=== PATIENT | male | born 1945 | race Caucasian/White ===

== ENCOUNTER 2021-08-04 08:50 | Inpatient (IN) | payer BC, MEDICARE, OTHER ==
[~2021-08-04] VITALS: Ht 182.9 cm; Wt 126.0 kg
[~2021-08-04 08:50] MED LIST: AMLO-489; BENA10TA15; CLON0.1T; HYDR10TA35; [UNRECOGNIZED DRUG - CODE]
[2021-08-04 10:38] LABS: Basophils # (auto) 0 10 ^3/uL (0-0.2); Basophils % (auto) 0.3 % (0.0-2.0); Eosinophils # (auto) 0 10 ^3/uL (0-0.8); Eosinophils % (auto) 0.1 % (0.0-7.0); Hematocrit 48.4 % (41.0-53.0); Hemoglobin 16.3 g/dL (13.5-17.5); Lymphocytes # (auto) 1.6 10 ^3/uL (0.4-5.4); Lymphocytes % (auto) 19.3 % (10.0-50.0); Mean Corpuscular Hemoglobin 28.4 pg (28.0-32.0); Mean Corpuscular Hgb Conc. 33.8 g/dL (32.0-36.0); Mean Corpuscular Volume 84.1 fL (80.0-100.0); Monocytes % (auto) 12.3 % (0.0-12.0); Neutrophils # (auto) 5.6 10 ^3/uL (1.6-8.6); Nucleated Red Blood Cells % 0.2 %; Red Blood Cells 5.75 10^6/uL (4.5-5.90); Red Cell Distribution Width 14.4 % (11.8-14.3); White Blood Cell 8.3 10^3/uL (4.4-10.8)
[2021-08-04 10:55] LABS: Albumin 2.9 g/dL (3.4-5.0); Calcium 8.7 mg/dL (8.5-10.1); Potassium 4.7 mmol/L (3.5-5.1)
[2021-08-04 10:57] LABS: Lactic Acid w/Reflex 2.1 mmol/L (0.4-2.0)
[2021-08-04 11:07] LABS: Bilirubin, Total 0.6 mg/dL (0.2-1.0); Total Protein 7.8 g/dL (6.4-8.2)
[2021-08-04] MEDS ORDERED: AZITHROMYCIN 250 MG TAB PO ONE (11:30)
[2021-08-04] MEDS ORDERED: cefTRIAXone 1GM/50ML D5W 50 ML IV ONE (11:30)
[2021-08-04 11:42] LABS: BUN/Creatinine Ratio 12.5
[2021-08-04] MEDS ORDERED: NITROGLYCERIN 0.4 MG SL TAB SL PRN ×2 (14:00→19:00)
[2021-08-04] MEDS: MORPHINE SULFATE INJECTION 2 MG/ML SYRG IV PRN ×2 (14:50→17:00)
[2021-08-04] MEDS ORDERED: CARV25TA55 PO (16:14)
[2021-08-04] MEDS ORDERED: APIX5TAB PO (16:15)
[2021-08-04] MEDS ORDERED: INSU70IN3 SC (16:16)
[2021-08-04] MEDS ORDERED: ISOS1TAB28 PO (16:17)
[2021-08-04] MEDS ORDERED: CHOL200039 PO (16:18)
[2021-08-04] MEDS ORDERED: DEXTROSE (50%) 50ML SYRG IV PRN (18:30)
[2021-08-04] MEDS ORDERED: BENAZEPRIL HCL 10 MG TAB PO ONE (18:30)
[2021-08-04] MEDS ORDERED: METOPROLOL SUCCINATE XL 50 MG TAB PO ONE (18:30)
[2021-08-04] MEDS: FUROSEMIDE 20 MG/2 ML VIAL IV SCH (18:57)
[2021-08-04] MEDS ORDERED: HYDROcodone-ACET 5/325MG TAB PO PRN (19:00)
[2021-08-04] MEDS ORDERED: METOCLOPRAMIDE HCL 5MG/ml INJ 2ml VIAL IV PRN (19:00)
[2021-08-04] MEDS ORDERED: ALUM & MAG HYDROX-SIMETH LIQ(MAALOX) 30 ML PO PRN (19:00)
[2021-08-04] MEDS ORDERED: ACETAMINOPHEN 500 MG TAB PO PRN (19:00)
[2021-08-04] MEDS ORDERED: MORPHINE SULFATE INJECTION 2 MG/ML SYRG IV PRN ×2 (19:00)
[2021-08-04] MEDS ORDERED: REMDESIVIR PER PHARMACY 0 ML IV SCH (19:00)
[2021-08-04] MEDS ORDERED: DOCUSATE SOD 100 MG CAP PO PRN (19:00)
[2021-08-04] MEDS ORDERED: PANTOPRAZOLE 40 MG/10 ML VIAL INJ IV ONE (19:15)
[2021-08-04 20:12] LABS: Basophils # (auto) 0 10 ^3/uL (0-0.2); Basophils % (auto) 0.1 % (0.0-2.0); Eosinophils # (auto) 0 10 ^3/uL (0-0.8); Eosinophils % (auto) 0.1 % (0.0-7.0); Hematocrit 45.2 % (41.0-53.0); Hemoglobin 15.4 g/dL (13.5-17.5); Lymphocytes # (auto) 1.6 10 ^3/uL (0.4-5.4); Lymphocytes % (auto) 22.1 % (10.0-50.0); Mean Corpuscular Hemoglobin 28.3 pg (28.0-32.0); Mean Corpuscular Hgb Conc. 34.1 g/dL (32.0-36.0); Monocytes # (auto) 0.8 10 ^3/uL (0-1.3); Monocytes % (auto) 11.1 % (0.0-12.0); Neutrophils # (auto) 4.9 10 ^3/uL (1.6-8.6); Neutrophils % (auto) 66.6 % (37.0-80.0); Nucleated Red Blood Cells % 0.4 %; Red Blood Cells 5.45 10^6/uL (4.5-5.90); Red Cell Distribution Width 14.1 % (11.8-14.3); White Blood Cell 7.4 10^3/uL (4.4-10.8)
[2021-08-04 20:29] LABS: Albumin 2.7 g/dL (3.4-5.0); Calcium 8.4 mg/dL (8.5-10.1); Magnesium 3.2 mg/dL (1.6-2.6); Potassium 4.5 mmol/L (3.5-5.1)
[2021-08-04 20:31] LABS: Lactic Acid w/Reflex 2.3 mmol/L (0.4-2.0)
[2021-08-04 20:39] LABS: BUN/Creatinine Ratio 12.7; Bilirubin, Total 0.5 mg/dL (0.2-1.0); CRP High Sensitivity 7.04 mg/dL (< 0.3); Total Protein 7.2 g/dL (6.4-8.2)
[2021-08-04 21:08] LABS: Thyroid Stimulating Hormone 1.4 uIU/mL (0.358-3.74)
[2021-08-04] MEDS: BUDESONIDE (INHALATION) 180 MCG IH IN SCH (21:19)
[2021-08-04] MEDS: ALBUTEROL SULF HFA 90MCG INH 200DOSE IN PRN (21:19)
[2021-08-04 22:00] VITALS: BP 132/76
[2021-08-04] MEDS ORDERED: TEMAZEPAM 15 MG CAP PO PRN (22:00)
[2021-08-04] MEDS: ASCORBIC ACID 1,000 MG TAB PO SCH (23:16)
[2021-08-04] MEDS: CHOLECALCIFEROL (VITD3) 2,000 UNIT CAP/TAB PO SCH (23:21)
[2021-08-04] MEDS: DexAMETHasone SOD PHOS 10MG/1ML VIAL INJ IV SCH (23:21)
[2021-08-04] MEDS: ZINC SULFATE 220mg CAP or TAB PO SCH (23:22)
[2021-08-04] MEDS: InsuLIN REG 1unit/0.01ml Soln (100units/ml) SC SCH (23:23)
[2021-08-04] MEDS: ATORVASTATIN 20 MG TAB PO SCH (23:23)
[2021-08-04] MEDS: APIXABAN 5 MG TAB PO SCH (23:23)
[2021-08-04] MEDS: ACCU-CHEK COMFORT CURVE STRIP VI SCH (23:24)
[2021-08-05 05:07] VITALS: BP 135/81
[2021-08-05] MEDS: FUROSEMIDE 20 MG/2 ML VIAL IV SCH (05:39)
[2021-08-05] MEDS: InsuLIN REG 1unit/0.01ml Soln (100units/ml) SC SCH ×4 (05:44→20:41)
[2021-08-05] MEDS: ACCU-CHEK COMFORT CURVE STRIP VI SCH ×4 (05:46→20:42)
[2021-08-05] MEDS: ALBUTEROL SULF HFA 90MCG INH 200DOSE IN PRN ×2 (06:25→22:43)
[2021-08-05] MEDS: BUDESONIDE (INHALATION) 180 MCG IH IN SCH ×2 (06:25→22:42)
[2021-08-05 08:00] VITALS: BP 144/91
[2021-08-05 08:11] LABS: Basophils # (auto) 0 10 ^3/uL (0-0.2); Basophils % (auto) 0.2 % (0.0-2.0); Eosinophils # (auto) 0 10 ^3/uL (0-0.8); Hematocrit 42.1 % (41.0-53.0); Hemoglobin 14.8 g/dL (13.5-17.5); Lymphocytes # (auto) 0.8 10 ^3/uL (0.4-5.4); Lymphocytes % (auto) 12.3 % (10.0-50.0); Mean Corpuscular Hemoglobin 29.3 pg (28.0-32.0); Mean Corpuscular Hgb Conc. 35.3 g/dL (32.0-36.0); Mean Corpuscular Volume 83.1 fL (80.0-100.0); Monocytes # (auto) 0.4 10 ^3/uL (0-1.3); Neutrophils # (auto) 5.2 10 ^3/uL (1.6-8.6); Neutrophils % (auto) 81.5 % (37.0-80.0); Nucleated Red Blood Cells % 0.1 %; Red Blood Cells 5.06 10^6/uL (4.5-5.90); Red Cell Distribution Width 14.2 % (11.8-14.3); White Blood Cell 6.4 10^3/uL (4.4-10.8)
[2021-08-05 08:20] LABS: Albumin 2.5 g/dL (3.4-5.0); Calcium 8.1 mg/dL (8.5-10.1); Magnesium 2.3 mg/dL (1.6-2.6); Potassium 4.6 mmol/L (3.5-5.1)
[2021-08-05 08:25] LABS: INR 1.1 (0.9-1.15); Partial Thromboplastin Time 34.7 sec (23.6-33.0)
[2021-08-05 08:26] LABS: BUN/Creatinine Ratio 13.2; Bilirubin, Total 0.6 mg/dL (0.2-1.0); Phosphorus 3.9 mg/dL (2.5-4.90); Total Protein 6.8 g/dL (6.4-8.2); Uric Acid 14.2 mg/dL (3.5-7.2)
[2021-08-05] MEDS: cefTRIAXone 1GM/50ML D5W 50 ML IV SCH (09:03)
[2021-08-05] MEDS: DexAMETHasone SOD PHOS 10MG/1ML VIAL INJ IV SCH (09:03)
[2021-08-05] MEDS: ZINC SULFATE 220mg CAP or TAB PO SCH (09:04)
[2021-08-05] MEDS: ASPirin 81 mg TAB PO SCH (09:04)
[2021-08-05] MEDS: ASCORBIC ACID 1,000 MG TAB PO SCH (09:06)
[2021-08-05] MEDS: METOPROLOL SUCCINATE XL 50 MG TAB PO SCH (09:06)
[2021-08-05] MEDS: ISOSORBIDE MONONITRATE ER 60 MG TAB PO SCH (09:07)
[2021-08-05] MEDS: CHOLECALCIFEROL (VITD3) 2,000 UNIT CAP/TAB PO SCH (09:07)
[2021-08-05] MEDS ORDERED: POTASSIUM CHL 20 Meq TABLET PO SCH (10:00)
[2021-08-05] MEDS: AZITHROMYCIN 500MG/ 250ML 250 ML IV SCH (10:00)
[2021-08-05] MEDS ORDERED: PANTOPRAZOLE 40 MG/10 ML VIAL INJ IV SCH (10:00)
[2021-08-05] MEDS: APIXABAN 5 MG TAB PO SCH ×2 (10:00→20:43)
[2021-08-05] MEDS ORDERED: BENAZEPRIL HCL 10 MG TAB PO SCH (10:00)
[2021-08-05] MEDS ORDERED: ALLOPURINOL 100 MG TAB PO SCH (10:00)
[2021-08-05] MEDS ORDERED: IVERMECTIN 3 MG TAB PO SCH (10:00)
[2021-08-05] MEDS ORDERED: SODIUM CHLORIDE 0.9% 1,000 ML IV ONE (10:45)
[2021-08-05 12:00] VITALS: BP 125/87
[2021-08-05 16:00] VITALS: BP 134/93
[2021-08-05] MEDS: ATORVASTATIN 20 MG TAB PO SCH (20:42)
[2021-08-05 22:00] VITALS: BP 143/95
[2021-08-06 05:00] VITALS: BP 123/76
[2021-08-06] MEDS: ACCU-CHEK COMFORT CURVE STRIP VI SCH ×4 (05:10→23:30)
[2021-08-06] MEDS: InsuLIN REG 1unit/0.01ml Soln (100units/ml) SC SCH ×4 (05:15→23:35)
[2021-08-06 09:00] VITALS: BP 125/77
[2021-08-06] MEDS ORDERED: DEXTROSE (50%) 50ML SYRG IV PRN (09:00)
[2021-08-06] MEDS: cefTRIAXone 1GM/50ML D5W 50 ML IV SCH (09:29)
[2021-08-06] MEDS: CHOLECALCIFEROL (VITD3) 2,000 UNIT CAP/TAB PO SCH (09:34)
[2021-08-06] MEDS: DexAMETHasone SOD PHOS 10MG/1ML VIAL INJ IV SCH (09:34)
[2021-08-06] MEDS: ZINC SULFATE 220mg CAP or TAB PO SCH (09:34)
[2021-08-06] MEDS: APIXABAN 5 MG TAB PO SCH ×2 (09:34→21:47)
[2021-08-06] MEDS: ASPirin 81 mg TAB PO SCH (09:34)
[2021-08-06] MEDS: METOPROLOL SUCCINATE XL 50 MG TAB PO SCH (09:35)
[2021-08-06] MEDS: ASCORBIC ACID 1,000 MG TAB PO SCH (09:35)
[2021-08-06] MEDS: ISOSORBIDE MONONITRATE ER 60 MG TAB PO SCH (09:35)
[2021-08-06] MEDS: INSULIN LANTUS (GLARGINE) 1 /0.01ml (100units/ml) SC SCH (09:48)
[2021-08-06] MEDS: AZITHROMYCIN 500MG/ 250ML 250 ML IV SCH (11:00)
[2021-08-06 11:12] LABS: Potassium 4.7 mmol/L (3.5-5.1)
[2021-08-06 11:17] LABS: BUN/Creatinine Ratio 15.4; Calcium 7.8 mg/dL (8.5-10.1)
[2021-08-06] MEDS: SODIUM CHLORIDE 0.9% 1,000 ML IV SCH (12:30)
[2021-08-06] MEDS: guaiFENesin-CODEINE Liq 5 ML UD GT PRN (12:41)
[2021-08-06] MEDS ORDERED: SODIUM BICARBONATE 650 MG TAB PO ONE (12:45)
[2021-08-06 13:00] VITALS: BP 171/100
[2021-08-06] MEDS: hydrALAZINE HCL 20 MG/ML VL IV PRN (15:37)
[2021-08-06] MEDS: SODIUM BICARBONATE 650 MG TAB PO SCH ×2 (17:31→21:48)
[2021-08-06] MEDS: BUDESONIDE (INHALATION) 180 MCG IH IN SCH (20:00)
[2021-08-06] MEDS: ALBUTEROL SULF HFA 90MCG INH 200DOSE IN PRN (20:01)
[2021-08-06] MEDS: ATORVASTATIN 20 MG TAB PO SCH (21:48)
[2021-08-06 22:00] VITALS: BP 142/78
[2021-08-07] MEDS: SODIUM CHLORIDE 0.9% 1,000 ML IV SCH (01:50)
[2021-08-07 05:00] VITALS: BP 144/90
[2021-08-07] MEDS: ACCU-CHEK COMFORT CURVE STRIP VI SCH ×4 (05:29→23:36)
[2021-08-07] MEDS: guaiFENesin-CODEINE Liq 5 ML UD GT PRN (05:30)
[2021-08-07] MEDS: InsuLIN REG 1unit/0.01ml Soln (100units/ml) SC SCH ×4 (05:30→23:35)
[2021-08-07] MEDS: SODIUM BICARBONATE 650 MG TAB PO SCH ×4 (05:30→22:07)
[2021-08-07 06:24] LABS: BUN/Creatinine Ratio 17.4; Calcium 8.7 mg/dL (8.5-10.1); Potassium 4.9 mmol/L (3.5-5.1)
[2021-08-07] MEDS: ALBUTEROL SULF HFA 90MCG INH 200DOSE IN PRN (06:37)
[2021-08-07] MEDS: BUDESONIDE (INHALATION) 180 MCG IH IN SCH ×2 (06:37→22:20)
[2021-08-07 07:35] VITALS: BP 119/85
[2021-08-07 08:58] VITALS: BP 145/88
[2021-08-07] MEDS: cefTRIAXone 1GM/50ML D5W 50 ML IV SCH (09:45)
[2021-08-07] MEDS: DexAMETHasone SOD PHOS 10MG/1ML VIAL INJ IV SCH (09:46)
[2021-08-07] MEDS: ZINC SULFATE 220mg CAP or TAB PO SCH (09:46)
[2021-08-07] MEDS: ASCORBIC ACID 1,000 MG TAB PO SCH (09:46)
[2021-08-07] MEDS: CHOLECALCIFEROL (VITD3) 2,000 UNIT CAP/TAB PO SCH (09:47)
[2021-08-07] MEDS: ASPirin 81 mg TAB PO SCH (10:00)
[2021-08-07] MEDS: APIXABAN 5 MG TAB PO SCH (10:00)
[2021-08-07] MEDS: ISOSORBIDE MONONITRATE ER 60 MG TAB PO SCH (10:04)
[2021-08-07] MEDS: METOPROLOL SUCCINATE XL 50 MG TAB PO SCH (10:05)
[2021-08-07] MEDS: INSULIN LANTUS (GLARGINE) 1 /0.01ml (100units/ml) SC SCH (10:06)
[2021-08-07] MEDS: AZITHROMYCIN 500MG/ 250ML 250 ML IV SCH (11:16)
[2021-08-07] MEDS ORDERED: DOXYCYCLINE 100MG/250ML 250 ML IV SCH (11:45)
[2021-08-07 13:00] VITALS: BP 119/85
[2021-08-07] MEDS ORDERED: HYDROmorphone HCL 2 MG/ML VL IV PRN (16:45)
[2021-08-07 17:00] VITALS: BP 152/96
[2021-08-07] MEDS: DOXYCYCLINE 100MG/250ML 250 ML IV SCH (18:10)
[2021-08-07 22:00] VITALS: BP 143/90
[2021-08-07 22:02] LABS: BUN/Creatinine Ratio 17.8; Calcium 8.1 mg/dL (8.5-10.1)
[2021-08-08 05:00] VITALS: BP 165/107
[2021-08-08] MEDS: SODIUM BICARBONATE 650 MG TAB PO SCH ×4 (06:00→21:48)
[2021-08-08] MEDS: BUDESONIDE (INHALATION) 180 MCG IH IN SCH ×2 (06:07→22:00)
[2021-08-08] MEDS: ALBUTEROL SULF HFA 90MCG INH 200DOSE IN PRN (06:08)
[2021-08-08 07:02] LABS: Hematocrit 43.4 % (41.0-53.0); Mean Corpuscular Hemoglobin 28.4 pg (28.0-32.0); Mean Corpuscular Hgb Conc. 34.5 g/dL (32.0-36.0); Mean Corpuscular Volume 82.3 fL (80.0-100.0); Red Blood Cells 5.27 10^6/uL (4.5-5.90); Red Cell Distribution Width 14.2 % (11.8-14.3); White Blood Cell 10.6 10^3/uL (4.4-10.8)
[2021-08-08] MEDS: ACCU-CHEK COMFORT CURVE STRIP VI SCH ×4 (07:06→23:16)
[2021-08-08] MEDS: DOXYCYCLINE 100MG/250ML 250 ML IV SCH ×2 (07:06→17:55)
[2021-08-08] MEDS: InsuLIN REG 1unit/0.01ml Soln (100units/ml) SC SCH ×4 (07:07→23:18)
[2021-08-08 07:23] LABS: Basophils % (manual) 0 (0.0-2.0); Blast Cells 0; Eosinophils % (manual) 0 (0-7); Myelocytes % 0; Potassium 4.9 mmol/L (3.5-5.1); Promyelocytes % 0; Reactive Lymphocytes 0
[2021-08-08 07:30] LABS: Albumin 2.6 g/dL (3.4-5.0); BUN/Creatinine Ratio 20.9; Bilirubin, Total 0.3 mg/dL (0.2-1.0); Calcium 8.5 mg/dL (8.5-10.1); Total Protein 6.4 g/dL (6.4-8.2)
[2021-08-08 07:31] LABS: Albumin 2.6 g/dL (3.4-5.0); Bilirubin, Direct 0.2 mg/dL (0-0.2); Bilirubin, Total 0.3 mg/dL (0.2-1.0); Total Protein 6.5 g/dL (6.4-8.2)
[2021-08-08 07:40] LABS: Band Neutrophils % (manual) 3; Lymphocytes % (manual) 12 (10.0-50.0); Metamyelocytes % 2; Monocytes % (manual) 9 (0-12)
[2021-08-08 09:00] VITALS: BP 170/103
[2021-08-08] MEDS: cefTRIAXone 1GM/50ML D5W 50 ML IV SCH (09:56)
[2021-08-08] MEDS: hydrALAZINE HCL 20 MG/ML VL IV PRN (09:57)
[2021-08-08] MEDS: ZINC SULFATE 220mg CAP or TAB PO SCH (09:57)
[2021-08-08] MEDS: DexAMETHasone SOD PHOS 10MG/1ML VIAL INJ IV SCH (09:57)
[2021-08-08] MEDS: METOPROLOL SUCCINATE XL 50 MG TAB PO SCH (09:58)
[2021-08-08] MEDS: ISOSORBIDE MONONITRATE ER 60 MG TAB PO SCH (09:58)
[2021-08-08] MEDS: CHOLECALCIFEROL (VITD3) 2,000 UNIT CAP/TAB PO SCH (09:58)
[2021-08-08] MEDS: INSULIN LANTUS (GLARGINE) 1 /0.01ml (100units/ml) SC SCH (12:01)
[2021-08-08 13:00] VITALS: BP 162/101
[2021-08-08] MEDS: APIXABAN 5 MG TAB PO SCH ×2 (15:41→21:48)
[2021-08-08 17:00] VITALS: BP 156/86
[2021-08-08 17:45] VITALS: BP 146/92
[2021-08-08] MEDS ORDERED: InsuLIN REG 1unit/0.01ml Soln (100units/ml) IV ONE (17:45)
[2021-08-08 22:00] VITALS: BP 149/99
[2021-08-09 05:00] VITALS: BP 185/100
[2021-08-09] MEDS: DOXYCYCLINE 100MG/250ML 250 ML IV SCH ×2 (05:16→18:04)
[2021-08-09] MEDS: SODIUM BICARBONATE 650 MG TAB PO SCH ×4 (05:16→22:31)
[2021-08-09] MEDS: ACCU-CHEK COMFORT CURVE STRIP VI SCH ×4 (05:45→23:42)
[2021-08-09] MEDS: InsuLIN REG 1unit/0.01ml Soln (100units/ml) SC SCH ×4 (05:46→23:45)
[2021-08-09] MEDS: hydrALAZINE HCL 20 MG/ML VL IV PRN (05:52)
[2021-08-09 06:04] LABS: Calcium 8.2 mg/dL (8.5-10.1); Potassium 4.8 mmol/L (3.5-5.1)
[2021-08-09 06:06] LABS: BUN/Creatinine Ratio 24.7
[2021-08-09] MEDS: BUDESONIDE (INHALATION) 180 MCG IH IN SCH ×2 (06:13→22:00)
[2021-08-09] MEDS: ALBUTEROL SULF HFA 90MCG INH 200DOSE IN PRN ×2 (06:13→23:06)
[2021-08-09] MEDS: cefTRIAXone 1GM/50ML D5W 50 ML IV SCH (08:52)
[2021-08-09] MEDS: APIXABAN 5 MG TAB PO SCH ×2 (08:53→21:51)
[2021-08-09] MEDS: ISOSORBIDE MONONITRATE ER 60 MG TAB PO SCH (08:53)
[2021-08-09] MEDS: ZINC SULFATE 220mg CAP or TAB PO SCH (08:53)
[2021-08-09] MEDS: DexAMETHasone SOD PHOS 10MG/1ML VIAL INJ IV SCH (08:53)
[2021-08-09] MEDS: NIFEdipine ER 30 MG TAB PO SCH (08:54)
[2021-08-09] MEDS: CHOLECALCIFEROL (VITD3) 2,000 UNIT CAP/TAB PO SCH (08:54)
[2021-08-09] MEDS: METOPROLOL SUCCINATE XL 50 MG TAB PO SCH (08:54)
[2021-08-09 09:00] VITALS: BP 148/91
[2021-08-09] MEDS: INSULIN LANTUS (GLARGINE) 1 /0.01ml (100units/ml) SC SCH (11:31)
[2021-08-09 13:00] VITALS: BP 147/93
[2021-08-09 17:00] VITALS: BP 142/85
[2021-08-09 22:00] VITALS: BP 140/90
[2021-08-10 05:00] VITALS: BP 154/85
[2021-08-10] MEDS: SODIUM BICARBONATE 650 MG TAB PO SCH ×2 (05:14→11:58)
[2021-08-10] MEDS: DOXYCYCLINE 100MG/250ML 250 ML IV SCH (05:15)
[2021-08-10] MEDS: ACCU-CHEK COMFORT CURVE STRIP VI SCH ×2 (05:30→11:59)
[2021-08-10] MEDS: InsuLIN REG 1unit/0.01ml Soln (100units/ml) SC SCH ×2 (05:31→11:59)
[2021-08-10] MEDS: BUDESONIDE (INHALATION) 180 MCG IH IN SCH (06:17)
[2021-08-10] MEDS: ALBUTEROL SULF HFA 90MCG INH 200DOSE IN PRN (06:17)
[2021-08-10 06:47] LABS: BUN/Creatinine Ratio 26.7; Calcium 8.5 mg/dL (8.5-10.1); Potassium 4.8 mmol/L (3.5-5.1)
[2021-08-10 08:00] VITALS: BP 148/91
[2021-08-10 09:23] VITALS: BP 151/82
[2021-08-10] MEDS: DexAMETHasone SOD PHOS 10MG/1ML VIAL INJ IV SCH (09:56)
[2021-08-10] MEDS: ZINC SULFATE 220mg CAP or TAB PO SCH (09:56)
[2021-08-10] MEDS: cefTRIAXone 1GM/50ML D5W 50 ML IV SCH (09:56)
[2021-08-10] MEDS: APIXABAN 5 MG TAB PO SCH (09:56)
[2021-08-10] MEDS: ISOSORBIDE MONONITRATE ER 60 MG TAB PO SCH (09:57)
[2021-08-10] MEDS: METOPROLOL SUCCINATE XL 50 MG TAB PO SCH (09:57)
[2021-08-10] MEDS: NIFEdipine ER 30 MG TAB PO SCH (09:57)
[2021-08-10] MEDS: CHOLECALCIFEROL (VITD3) 2,000 UNIT CAP/TAB PO SCH (09:57)
[2021-08-10] MEDS: INSULIN LANTUS (GLARGINE) 1 /0.01ml (100units/ml) SC SCH (10:29)
[2021-08-10 13:00] VITALS: BP 137/82
[2021-08-10] MEDS ORDERED: ZINC220T6 PO (14:07)
[2021-08-10] MEDS ORDERED: DEX4T PO (14:07)
[2021-08-10] MEDS ORDERED: ALBUAER3 IN (14:07)
[2021-08-10] MEDS ORDERED: ASCO500T11 PO (14:08)
[2021-08-10 14:22] VITALS: BP 137/82
== END 2021-08-10 18:02 | disposition home or self-care (01) | DRG 177 ==
LOC: ER 08:50 → TELE 13:46 → TELE-EAST 21:56
PROVIDERS: ADMIT Hospitalist; ATTEND Internal Medicine
DX: U07.1 COVID-19 (principal); J12.82 Pneumonia due to coronavirus disease 2019; I21.A1 Myocardial infarction type 2; J96.01 Acute respiratory failure with hypoxia; I16.9 Hypertensive crisis, unspecified; N18.4 Chronic kidney disease, stage 4 (severe); K62.5 Hemorrhage of anus and rectum; J44.0 Chronic obstructive pulmonary disease with (acute) lower respiratory infection; N17.9 Acute kidney failure, unspecified; D89.839 Cytokine release syndrome, grade unspecified; E66.01 Morbid (severe) obesity due to excess calories; E78.5 Hyperlipidemia, unspecified; E88.09 Other disorders of plasma-protein metabolism, not elsewhere classified; I48.0 Paroxysmal atrial fibrillation; K21.9 Gastro-esophageal reflux disease without esophagitis; K75.81 Nonalcoholic steatohepatitis (NASH); M1A.9XX0 Chronic gout, unspecified, without tophus (tophi); G47.30 Sleep apnea, unspecified; I12.9 Hypertensive chronic kidney disease with stage 1 through stage 4 chronic kidney disease, or unspecified chronic kidney disease; E11.22 Type 2 diabetes mellitus with diabetic chronic kidney disease; M19.90 Unspecified osteoarthritis, unspecified site; Z53.29 Procedure and treatment not carried out because of patient's decision for other reasons; K64.9 Unspecified hemorrhoids; R79.89 Other specified abnormal findings of blood chemistry; T38.0X5A Adverse effect of glucocorticoids and synthetic analogues, initial encounter; E11.40 Type 2 diabetes mellitus with diabetic neuropathy, unspecified; F17.210 Nicotine dependence, cigarettes, uncomplicated; N40.0 Benign prostatic hyperplasia without lower urinary tract symptoms; Z85.46 Personal history of malignant neoplasm of prostate; Z79.01 Long term (current) use of anticoagulants; Z68.37 Body mass index [BMI] 37.0-37.9, adult; Y92.89 Other specified places as the place of occurrence of the external cause
CPT/HCPCS: 36415; 36600; 71045; 71250; 76775; 80048; 80053; 80076; 82270; 82306; 82728; 82805; 82962; 83036; 83605; 83615; 83735; 83880; 84100; 84443; 84484; 84550; 85007; 85025; 85027; 85379; 85610; 85730; 86141; 87040; 87077; 87186; 87426; 87493; 93005; 94640; 96365; 96375; C9113; G0378; J0696; J1100; J1815; J3490

== ENCOUNTER 2024-04-10 08:46 | Inpatient (IN) | payer MEDICARE, OTHER ==
[~2024-04-10] VITALS: Ht 177.8 cm; Wt 100.0 kg
[~2024-04-10 08:46] MED LIST changes: +ALBUAER3 IN; -AMLO-489; +APIX5TAB PO; +ASCO500T11 PO; -BENA10TA15; +CARV25TA55 PO; +CHOL200039 PO; -CLON0.1T; +DEX4T PO; -HYDR10TA35; +INSU70IN3 SC; +ISOS1TAB28 PO; +ZINC220T6 PO; -[UNRECOGNIZED DRUG - CODE]
[2024-04-10 10:07] LABS: Chloride 98 mmol/L (98-107); Potassium 5.4 mmol/L (3.5-5.1); Sodium 135 mmol/L (136-145)
[2024-04-10 10:08] LABS: Anion Gap 14 (5-15); Carbon Dioxide 23 mmol/L (20-30)
[2024-04-10 10:09] LABS: Calcium 8.7 mg/dL (8.7-10.4)
[2024-04-10 10:14] LABS: BUN/Creatinine Ratio 6.8 (10.0-20.0); Glucose 170 mg/dL (74-106)
[2024-04-10 10:17] VITALS: PULSE 85; RESP 2; O2SAT 98
[2024-04-10 10:26] LABS: Basophils # (auto) 0 10 ^3/uL (0-0.2); Basophils % (auto) 0.1 % (0.0-2.0); Eosinophils # (auto) 0 10 ^3/uL (0-0.8); Eosinophils % (auto) 0.1 % (0.0-7.0); Hematocrit 27.9 % (41.0-53.0); Hemoglobin 9.4 g/dL (13.5-17.5); Lymphocytes # (auto) 0.4 10 ^3/uL (0.4-5.4); Lymphocytes % (auto) 2.9 % (10.0-50.0); Mean Corpuscular Hemoglobin 30.7 pg (28.0-32.0); Mean Corpuscular Hgb Conc. 33.8 g/dL (32.0-36.0); Mean Corpuscular Volume 90.9 fL (80.0-100.0); Monocytes % (auto) 7.2 % (0.0-12.0); Neutrophils % (auto) 89.7 % (37.0-80.0); Platelet Count (auto) 132 10^3/uL (140-450); Red Blood Cells 3.07 10^6/uL (4.5-5.90); Red Cell Distribution Width 15.5 % (11.8-14.3); White Blood Cell 13.4 10^3/uL (4.4-10.8)
[2024-04-10 10:40] LABS: Blood Urea Nitrogen 82 mg/dL (9-23)
[2024-04-10] MEDS ORDERED: HYDROmorphone HCL 2 MG/ML VL/or syr IV PRN (13:30)
[2024-04-10] MEDS ORDERED: DOCUSATE SOD 100 MG CAP PO PRN (13:30)
[2024-04-10] MEDS ORDERED: ACETAMINOPHEN 325 MG TAB PO PRN (13:30)
[2024-04-10] MEDS ORDERED: HYDROcodone-ACET 5/325MG TAB PO PRN (13:30)
[2024-04-10] MEDS: CARVEDILOL 12.5 MG TAB PO ONE (13:31)
[2024-04-10] MEDS: HYDROcodone-ACET 10/325MG TAB PO ONE (13:31)
[2024-04-10] MEDS: SODIUM CHLOR 0.9% PF (SALINE LOCK) 10ML VIAL/SYR IV SCH (13:56)
[2024-04-10] MEDS ORDERED: DEXTROSE (50%) 50ML SYRG IV PRN (14:00)
[2024-04-10] MEDS: ONDANSETRON HCL 4 MG/2 ML VIAL IV PRN (16:17)
[2024-04-10] MEDS: ACCU-CHEK COMFORT CURVE STRIP VI SCH (17:00)
[2024-04-10] MEDS: InsuLIN REG 1unit/0.01ml Soln (100units/ml) SC SCH (17:53)
[2024-04-10] MEDS ORDERED: PATIENTS OWN MEDICATION (Carvedilol 25 MG) PO SCH (18:00)
[2024-04-10] MEDS: CARVEDILOL 12.5 MG TAB PO SCH (18:00)
[2024-04-10 20:00] VITALS: BP 117/49; PULSE 68; RESP 13; TEMP 98.2; O2SAT 96
[2024-04-10] MEDS ORDERED: APIXABAN 5 MG TAB PO SCH (22:00)
[2024-04-11] MEDS ORDERED: ISOSORBIDE MONONITRATE ER 60 MG TAB PO SCH (10:00)
[2024-04-11] MEDS ORDERED: CHOLECALCIFEROL PO SCH (10:00)
[2024-04-11] MEDS ORDERED: CHOLECALCIFEROL (VITD3) 1,000UNIT=25mCg TAB PO SCH (10:00)
[2024-04-11] MEDS ORDERED: PANTOPRAZOLE 40 MG/10 ML VIAL INJ IV SCH (10:00)
[2024-04-11] MEDS ORDERED: ZINC SULFATE 220mg CAP or TAB PO SCH (10:00)
[2024-04-11] MEDS ORDERED: PATIENTS OWN MEDICATION (Zinc Sulfate 220 MG) PO SCH (10:00)
[2024-04-11] MEDS ORDERED: ASCORBIC ACID 500 MG TAB PO SCH (10:00)
[2024-04-11] MEDS ORDERED: PATIENTS OWN MEDICATION (Isosorbide Mononitrate (Isosorbide Mononitrate Er) 1 TAB) PO SCH (10:00)
== END 2024-04-10 20:24 | disposition left against medical advice (07) | DRG 640 ==
LOC: ER 08:46 → EDBD 08:46 → OVERFLOW 13:36
PROVIDERS: ADMIT Internal Medicine; ATTEND Internal Medicine
DX: E87.70 Fluid overload, unspecified (principal); N18.6 End stage renal disease; I48.92 Unspecified atrial flutter; I24.9 Acute ischemic heart disease, unspecified; I12.0 Hypertensive chronic kidney disease with stage 5 chronic kidney disease or end stage renal disease; I48.91 Unspecified atrial fibrillation; E87.5 Hyperkalemia; E11.22 Type 2 diabetes mellitus with diabetic chronic kidney disease; Z99.2 Dependence on renal dialysis; Z79.899 Other long term (current) drug therapy; Z79.4 Long term (current) use of insulin; Z86.73 Personal history of transient ischemic attack (TIA), and cerebral infarction without residual deficits; Z91.158 Patient's noncompliance with renal dialysis for other reason
CPT/HCPCS: 36415; 71045; 80048; 83880; 84484; 85025; 85379; 93970; 99291; G0378; J2405